=== PATIENT | female | born 1935 | race Caucasian/White ===

== ENCOUNTER 2023-11-24 15:47 | Emergency (ER) | payer MEDICARE ==
[~2023-11-24] VITALS: Ht 157.5 cm; Wt 40.0 kg
[2023-11-24 17:46] VITALS: BP 140/97; PULSE 63; RESP 16; TEMP 97.8; O2SAT 95
== END 2023-11-24 17:40 | disposition home or self-care (01) ==
LOC: ER 15:49
DX: R60.0 Localized edema (principal); M71.22 Synovial cyst of popliteal space [Baker], left knee
CPT/HCPCS: 93971; 99284